=== PATIENT | male | born 1965 | race Caucasian/White ===

== ENCOUNTER 2023-06-29 09:57 | Emergency (ER) | payer MEDICARE, MEDICAID ==
[~2023-06-29] VITALS: Ht 170.2 cm; Wt 75.0 kg
[2023-06-29] MEDS ORDERED: CEPH500C PO (11:35)
[2023-06-29] MEDS ORDERED: ACET-1080 PO (11:36)
[2023-06-29 11:38] VITALS: BP 154/82; PULSE 81; RESP 16; TEMP 97.5; O2SAT 97
== END 2023-06-29 11:42 | disposition home or self-care (01) ==
LOC: ER 09:57
DX: S01.511A Laceration without foreign body of lip, initial encounter (principal); S60.211A Contusion of right wrist, initial encounter; I10 Essential (primary) hypertension; E11.9 Type 2 diabetes mellitus without complications; K21.9 Gastro-esophageal reflux disease without esophagitis; E78.5 Hyperlipidemia, unspecified; Z88.0 Allergy status to penicillin; W18.39XA Other fall on same level, initial encounter; Y93.89 Activity, other specified; Y92.89 Other specified places as the place of occurrence of the external cause; Y99.8 Other external cause status
CPT/HCPCS: 12014; 73110; 99283; J2001; 12013